=== PATIENT | male | born 1965 | race Caucasian/White ===

== ENCOUNTER 2017-09-12 08:20 | Day surgery (SDC) | payer OTHER ==
[~2017-09-12 08:20] MED LIST: Lactated Ringers 1,000 ML IV SCH; Sodium Chloride 0.9% 10 ML Syringe FLUSH PRN
[2017-09-12] MEDS ORDERED: Midazolam 1 MG/ML 2 ML SDV IV ONE (09:40)
[2017-09-12] MEDS ORDERED: Propofol 200 MG/20 ML SDV IV ONE (09:40)
--- NOTE | 2017-09-12 10:21 | PCM.OPNOTE ---
- General Post-Op/Procedure Note Date of Surgery/Procedure: 09/12/17 Operative Procedure(s): c scope with bx Findings: ascending colon polyps x2 descending colon polyp rectal polyp scattered diverticula Pre Op Diagnosis: screening Post-Op Diagnosis: ascending colon polyps x2. descending colon polyp. rectal polyp. scattered diverticula Anesthesia Technique: MAC Primary Surgeon: Chico Wallace Anesthesia Provider: Helga Clemens Pathology: ascending colon polyps x2 descending colon polyp rectal polyp Complications: None Condition: Good Free Text/Narrative:: see dictation
--- NOTE | 2017-09-12 17:31 | OR ---
DATE OF OPERATION: 09/12/2017 SURGEON: Chico Wallace MD PROCEDURE PERFORMED: Colonoscopy with cold forceps and cold loop snare biopsy. PREOPERATIVE DIAGNOSIS: Need for screening C scope. POSTOPERATIVE DIAGNOSIS: Ascending colon polyp, descending colon polyp, and rectal polyp as well as scattered diverticulosis. INDICATIONS FOR PROCEDURE: This is a 51-year-old white male who presents for his initial colonoscopy. He was offered and accepted same. DESCRIPTION OF OPERATION: After an excellent IV sedation was administered, digital rectal exam was performed. No marked abnormality was noted. Flexible colonoscope was inserted and advanced to the cecum without difficulty. The following findings were noted: Prep; the patient had whole kernels of corn. Also, there are one and two areas where we were not able to get an adequate view of the mucosa. Otherwise, approximately 95% of the colon was viewable. Ascending colon demonstrated a polypoid lesion just above the cecum. He had two ascending colon polyps and then one just distal. Those were both biopsied with the cold loop snare and cold forceps biopsy, and submitted in one container. Transverse colon was unremarkable. Descending colon, a small polypoid lesion biopsied with cold loop snare and sent for permanent, occasional diverticula. Sigmoid, occasional diverticula. Rectum, small polypoid lesion biopsied with cold snare and sent for permanent. Colon was deflated. Scope was removed. The patient tolerated the procedure well and was taken to recovery in good condition. /[id number] /MODL
== END 2017-09-12 11:25 | disposition home or self-care (01) ==
LOC: FB.SDS 08:20
PROVIDERS: ATTEND Surgery
DX: Z12.11 Encounter for screening for malignant neoplasm of colon (principal); K57.30 Diverticulosis of large intestine without perforation or abscess without bleeding; K62.1 Rectal polyp; D12.2 Benign neoplasm of ascending colon; D12.4 Benign neoplasm of descending colon
CPT/HCPCS: 88305; J2250; J2704; J7120

== ENCOUNTER 2019-02-24 19:52 | Emergency (ER) | payer OTHER ==
[2019-02-24] MEDS ORDERED: Lidocaine 2% 20 ML MDV INFILT ONE (19:53)
--- NOTE | 2019-02-24 20:15 | EDM.PDOC ---
ED HPI GENERAL MEDICAL PROBLEM - General Chief Complaint: Laceration Stated Complaint: FINGER LACERATION Time Seen by Provider: 02/24/19 20:00 Source of Information: Reports: Patient History Limitations: Reports: No Limitations - History of Present Illness INITIAL COMMENTS - FREE TEXT/NARRATIVE: Julien was dicing tomatioes for salsa this evening when he inadvertantly lacerated the middle digit of left hand. There is active bleeding from the wound , sensation is full, and no loss of function. His tetanus vax status is current. 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 Neurological History: Reports: None Psychiatric History: Reports: None Endocrine/Metabolic History: Reports: None Hematologic History: Reports: None Immunologic History: Reports: Immunosuppression Oncologic (Cancer) History: Reports: None Dermatologic History: Reports: None - Past Surgical History Head Surgeries/Procedures: Reports: None GI Surgical History: Reports: Cholecystectomy Musculoskeletal Surgical History: Reports: Arthroscopic Knee Social & Family History - Caffeine Use Caffeine Use: Reports: Soda ED ROS GENERAL - Review of Systems Review Of Systems: ROS reveals no pertinent complaints other than HPI. ED EXAM, SKIN/RASH Exam: See Below Exam Limited By: No Limitations General Appearance: Alert, WD/WN, No Apparent Distress Head: Normocephalic Neck: Normal Inspection Respiratory/Chest: Lungs Clear Cardiovascular: Regular Rate, Rhythm Back Exam: Normal Inspection Extremities: Normal Range of Motion, Other (1.2 cm laceration of L middle digit) Neurological: Alert, Oriented, CN II-XII Intact, Normal Cognition, Normal Gait, No Motor/Sensory Deficits Psychiatric: Normal Affect, Normal Mood Skin: Warm, Dry, Normal Color, No Rash, Wound/Incision (1.2 cm simple laceration of middle digit L hand) ED SKIN PROCEDURES - Laceration/Wound Repair Left Midline Distal Digit - 3rd (Middle) Appearance: Subcutaneous Distal NVT: Neuro & Vascular Intact Anesthetic Type: Local Local Anesthesia - Lidocaine (Xylocaine): 2% Plain Local Anesthetic Volume: 2cc Skin Prep: Providone-Iodine (Betadine) Exploration/Debridement/Repair: Wound Explored, No Foreign Material Found Closed with: Sutures Lac/Wound length In cm: 1.2 Suture Size: 4-0 # of Sutures: 3 Suture Type: Nylon, Interrupted, Simple Drain Placement: No Sterile Dressing Applied: Nurse Tetanus Status Addressed: Yes Complications: No Course - Vital Signs Text/Narrative:: Patient tolerated procedure well. Departure - Departure Time of Disposition: 20:15 Disposition: Home, Self-Care 01 Condition: Good Clinical Impression: Laceration of left middle finger Qualifiers: Encounter type: initial encounter Damage to nail status: without damage Foreign body presence: without foreign body Qualified Code(s): S61.213A - Laceration without foreign body of left middle finger without damage to nail, initial encounter - Discharge Information *PRESCRIPTION DRUG MONITORING PROGRAM REVIEWED*: Not Applicable *COPY OF PRESCRIPTION DRUG MONITORING REPORT IN PATIENT TAYO: Not Applicable Referrals: Herman Duke MD [Primary Care Provider] - - Problem List & Annotations (1) Laceration of left middle finger SNOMED Code(s): 77195293359183704 Code(s): S61.213A - LACERATION W/O FB OF L MID FINGER W/O DAMAGE TO NAIL, INIT Status: Acute Annotation/Comment:: Routine wound cares, keep clean and covered - Problem List Review Problem List Initiated/Reviewed/Updated: Yes - Assessment/Plan Plan: SR in 10 days.
== END 2019-02-24 20:25 | disposition home or self-care (01) ==
LOC: FB.ED 19:52
DX: S61.213A Laceration without foreign body of left middle finger without damage to nail, initial encounter (principal); Z90.49 Acquired absence of other specified parts of digestive tract; W26.8XXA Contact with other sharp object(s), not elsewhere classified, initial encounter
CPT/HCPCS: 12001; 99282; J2001; 40830

== ENCOUNTER 2022-04-27 03:10 | Emergency (ER) | payer OTHER ==
[2022-04-27] MEDS ORDERED: Cephalexin 500 MG Cap PO ONE (03:11)
[2022-04-27] MEDS ORDERED: Diphtheria,Pertussis(Acell),Tetanus Vaccine 0.5 ML Syringe IM ONE (03:40)
== END 2022-04-27 04:15 | disposition home or self-care (01) ==
LOC: FB.ED 03:10
DX: S61.315A Laceration without foreign body of left ring finger with damage to nail, initial encounter (principal); Z23 Encounter for immunization; W26.8XXA Contact with other sharp object(s), not elsewhere classified, initial encounter
CPT/HCPCS: 90471; 90715; 99283; A9270

== ENCOUNTER 2023-07-01 16:22 | Emergency (ER) | payer OTHER ==
[2023-07-01 17:15] LABS: BASOPHILS PERCENT AUTO 0.5 % (0.3-3.8); EOSINOPHILS ABSOLUTE AUTO 0.3 x10-3/uL (0.0-0.6); EOSINOPHILS PERCENT AUTO 3.8 % (0.1-6.8); HEMATOCRIT 35.2 % (38.3-50.1); HEMOGLOBIN 11.9 g/dL (12.9-17.7); LYMPHOCYTES ABSOLUTE AUTO 1.2 x10-3/uL (0.5-4.5); LYMPHOCYTES PERCENT AUTO 18.6 % (15.8-45.3); MEAN CORPUSCULAR HEMOGLOBIN 27.4 pg (27.0-33.3); MEAN CORPUSCULAR HGB CONC 33.9 g/dL (28.7-35.3); MEAN CORPUSCULAR VOLUME 80.9 fL (80.8-98.7); MEAN PLATELET VOLUME 7.9 fL (6.7-11.0); MONOCYTES ABSOLUTE AUTO 0.7 x10-3/uL (0.0-1.2); MONOCYTES PERCENT AUTO 10.6 % (5.5-15.2); NEUTROPHILS ABSOLUTE AUTO 4.4 x10-3/uL (1.7-6.9); NEUTROPHILS PERCENT AUTO 66.5 % (40.3-71.8); PLATELET COUNT,PLT 209 x10(3)uL (117-477); RED BLOOD CELL COUNT 4.35 x10(6)uL (3.90-5.90); RED CELL DISTRIBUTION WIDTH 14.1 % (12.4-15.0); WHITE BLOOD CELL COUNT,WBC 6.6 x10-3/uL (3.2-10.1)
[2023-07-01 17:16] LABS: BLOOD UREA NITROGEN,BUN 21 mg/dL (7-18); CALCIUM 8.7 mg/dL (8.6-10.2); CARBON DIOXIDE,CO2 33 mmol/L (21-32); CHLORIDE,CL 100 mmol/L (100-110); CREATININE 1.4 mg/dL (0.70-1.30); EST CRCL DRUG DOSING (CG) 64.67 mL/min; ESTIMATED GFR 59 mL/min (>60); GLUCOSE RANDOM 91 mg/dL (80-116); POTASSIUM,K 3.8 mmol/L (3.5-5.3); SODIUM,NA 137 mmol/L (135-145)
[2023-07-01 17:45] LABS: INFLUENZA A NAA NEGATIVE (NEGATIVE); INFLUENZA B NAA NEGATIVE (NEGATIVE); RESPIRATORY SYNCYTIAL VIR NAA NEGATIVE (NEGATIVE)
[2023-07-01 17:48] LABS: CORONAVIRUS COVID-19 NAA NEGATIVE (NEGATIVE)
== END 2023-07-01 18:23 | disposition home or self-care (01) ==
LOC: FB.ED 16:22
DX: K21.00 Gastro-esophageal reflux disease with esophagitis, without bleeding (principal); Z20.822 Contact with and (suspected) exposure to COVID-19; Z79.01 Long term (current) use of anticoagulants; Z86.16 Personal history of COVID-19
CPT/HCPCS: 0241U; 36415; 71045; 80048; 85025; 87651; 99283

== ENCOUNTER 2025-02-04 06:52 | Day surgery (SDC) | payer OTHER ==
[~2025-02-04 06:52] MED LIST changes: -Lactated Ringers 1,000 ML IV SCH
[2025-02-04] MEDS ORDERED: Propofol 200 MG/20 ML SDV IV ONE (06:53)
[2025-02-04] MEDS ORDERED: Midazolam 1 MG/ML 2 ML SDV IV ONE (06:53)
[2025-02-04] MEDS ORDERED: Ketamine 500 mg/10 ML MDV IV ONE (06:53)
[2025-02-04] MEDS ORDERED: Lidocaine 1% PF 2 ML SDV IV ONE (06:53)
[2025-02-04] MEDS ORDERED: Glycopyrrolate 0.2 MG/ML 5 ML MDV IV ONE (06:53)
[2025-02-04] MEDS: Lactated Ringers 1,000 ML IV SCH (07:21)
== END 2025-02-04 09:58 | disposition home or self-care (01) ==
LOC: FB.SDS 06:52
PROVIDERS: ATTEND Surgery
DX: Z12.11 Encounter for screening for malignant neoplasm of colon (principal); D12.2 Benign neoplasm of ascending colon; D12.6 Benign neoplasm of colon, unspecified; K62.1 Rectal polyp; K57.30 Diverticulosis of large intestine without perforation or abscess without bleeding; E66.9 Obesity, unspecified; Z80.0 Family history of malignant neoplasm of digestive organs; Z68.37 Body mass index [BMI] 37.0-37.9, adult; Z86.0101 Personal history of adenomatous and serrated colon polyps
CPT/HCPCS: 00811; 45385; 88305; A9270; J1596; J2003; J2250; J2704; J3490; J7120